=== PATIENT | female | born 1955 | race Caucasian/White ===

== ENCOUNTER → 2018-02-18 | Outpatient (CLI) | payer OTHER ==
[~2018-02-18] MED LIST: ACTIVELLA1 TAB; AMITRIPTYLINE H50 M2; EFFEXOR; GAVISCON TABLE1 EACH PO; LOPRESSOR 50 MG50 M1; MIRALAX255 GM; NEXIUM40 MG; NORCO 5-325 TA1 EACH PO; PANTOPRAZOLE SO40 MG; PROTONIX40 MG PO; RELPAX40 MG; ZANTAC 150MG T150 M1 PO
== END ==
LOC: M.RAD 13:11
DX: Z12.31 Encounter for screening mammogram for malignant neoplasm of breast (principal); M81.0 Age-related osteoporosis without current pathological fracture; M85.89 Other specified disorders of bone density and structure, multiple sites; Z78.0 Asymptomatic menopausal state

== ENCOUNTER 2018-09-04 18:18 | Emergency (ER) | payer OTHER ==
[~2018-09-04] VITALS: Ht 157.5 cm; Wt 40.8 kg
[~2018-09-04 18:18] MED LIST changes: -AMITRIPTYLINE H50 M2; +AMITRIPTYLINE H50 M2 PO; -LOPRESSOR 50 MG50 M1; +LOPRESSOR50 MG PO
[2018-09-04 19:53] LABS: CALCIUM 9.2 mg/dL (8.5-10.1); CREATININE 0.9 mg/dL (0.6-1.3); POTASSIUM 3.8 mmol/L (3.5-5.1)
[2018-09-04 21:24] VITALS: BP 110/58
== END 2018-09-04 21:25 | disposition home or self-care (01) ==
LOC: M.ERS 18:18
PROVIDERS: Physician Assistant
DX: G43.909 Migraine, unspecified, not intractable, without status migrainosus (principal); R11.2 Nausea with vomiting, unspecified; Z88.2 Allergy status to sulfonamides; Z88.1 Allergy status to other antibiotic agents; Z88.8 Allergy status to other drugs, medicaments and biological substances

== ENCOUNTER 2018-10-10 13:07 | Emergency (ER) | payer OTHER ==
[~2018-10-10] VITALS: Ht 157.5 cm; Wt 41.5 kg
[2018-10-10 13:34] LABS: ABSOLUTE EOSINOPHILS 0.1 thou/uL (0.0-0.7); ABSOLUTE LYMPHOCYTES 1.3 thou/uL (0.8-5.3); ABSOLUTE MONOCYTES 0.4 thou/uL (0.0-1.2); ABSOLUTE NEUTROPHILS 2.4 thou/uL (1.6-8.1); BASOPHILS 0.9 %; EOSINOPHILS 1.9 %; HEMATOCRIT 37.7 % (37.0-47.0); HEMOGLOBIN 12.6 gm/dL (12.0-15.0); LYMPHOCYTES 31.4 %; MCHC 33.3 g/dL (28.0-37.0); MCV 93.1 fL (80.0-100.0); MONOCYTES 8.6 %; NUCLEATED RBCS 0 /100WBC; PLATELET COUNT* 217 thou/uL (150-400); POLYS 57.2 %; RBC 4.05 mil/uL (4.20-5.00); RDW-CV 13.5 % (10.5-14.5); WBC 4.1 thou/uL (4.0-11.0)
[2018-10-10 13:47] LABS: ANION GAP 7 mmol/L (7-16); BUN 15 mg/dL (7-18); CALCIUM 9.2 mg/dL (8.5-10.1); CHLORIDE 101 mmol/L (98-107); CO2 33 mmol/L (21-32); CREATININE 0.9 mg/dL (0.6-1.3); GLUCOSE 127 mg/dL (70-99); POTASSIUM 3.8 mmol/L (3.5-5.1); SODIUM 141 mmol/L (136-145)
[2018-10-10 13:52] LABS: PROTIME 9.9 Seconds (9.20-11.50)
[2018-10-10 13:59] LABS: ALBUMIN 3.7 g/dL (3.4-5.0); ALKALINE PHOSPHATASE 77 U/L (46-116); NT-PRO BRAIN NAT PEPTIDE 242 pg/mL (<300); SGOT 25 U/L (15-37); SGPT 31 U/L (30-65); TOTAL BILIRUBIN 0.3 mg/dL (<0.1-1.0); TOTAL PROTEIN 7.4 g/dL (6.4-8.2); TROPONIN-I LEVEL <0.06 ng/mL (<0.06)
[2018-10-10 15:55] VITALS: BP 97/60
--- NOTE | 2018-10-10 16:05 | EKG ---
[place] [address] ELECTROCARDIOGRAM REPORT Name: MIRIAN GILBERT Room: [facility]#: [id number] Admission: 10/10/18 Attend Phys: Discharge: Date of : 51 Report #: [id number] THIS REPORT FOR: //name// [facility] ED Test Date: 2018-10-10 Test Time: 13:12:53 Pat Name: MIRIAN GILBERT Department: Room: Gender: F Die Tester: ANNA : 1955 Requested By: Prisca Tatum Order Number: [id number] MD: Cyril Fermin Measurements Intervals [place]igan Rate: 64 P: 81 CT: 200 QRS: 67 QRSD: 99 T: 63 QT: 420 QTc: 434 Interpretive Statements Sinus rhythm baseline wander Compared to ECG 04/10/2012 21:56:22 no change Electronically Signed On 10-10-2018 16:05:15 CDT by Cyril Fermin [email or web address] <ELECTRONICALLY SIGNED> By: Cyril Fermin MD, [facility] 10/10/18 1605 1312 1312 Cyril Fermin MD, FACC /EPI
== END 2018-10-10 19:09 | disposition home or self-care (01) ==
LOC: M.ERS 13:07
PROVIDERS: Personal Emergency Response Attendant
DX: R07.89 Other chest pain (principal); G43.909 Migraine, unspecified, not intractable, without status migrainosus; Z88.6 Allergy status to analgesic agent; Z88.5 Allergy status to narcotic agent; Z88.2 Allergy status to sulfonamides

== ENCOUNTER → 2018-11-25 | Outpatient (CLI) | payer MEDICARE, OTHER ==
--- NOTE | 2018-11-25 17:04 | EXE ---
[place] [address] STRESS ECHOCARDIOGRAM Name: MIRIAN GILBERT Room: [facility]#: [id number] Admission: 11/25/18 Attend Phys: Brent Gardner, Discharge: Date of : 51 Date of Service: 11/25/18 1704 Report #: [id number] THIS REPORT FOR: //name// APPROVED REPORT Study performed: 11/25/2018 15:35:13 Exam: Stress Echocardiogram Indication: Chest pain Patient Location: Out-Patient Stress Nurse: Palma Andre RN Supervising Physician: Brent Gardner MD Ht: 5 ft 2 in HR: 74 bpm BP: 123/80 mmHg Medical History Cardiac Risk Factors: FHX of CAD Procedure The patient underwent an Exercise Stress Test using the Maurilio Protocol. Blood pressure, heart rate, and EKG were monitored. An Echocardiogram was performed by security system technician in four stages in quad fashion. At peak stress, four selected images were obtained and placed side by side with resting images for comparison. Stress Test Details Stress Test: Exercise stress testing was performed using a Maurilio protocol. HR Resting HR: 74 bpm Max Heart Rate (APMHR): 155 bpm Max HR Achieved: 167 bpm Target HR (85% APMHR): 131 bpm % of APMHR: 107 Recovery HR: 91 bpm HR response to stress: Normal HR response to stress BP Resting BP: 123/80 mmHg Max BP: 189/72 mmHg Recovery BP: 130/80 mmHg BP response to stress: Normal blood pressure response to stress. ECG Resting ECG: Sinus Rhythm Stress ECG: [place] [address] STRESS ECHOCARDIOGRAM Name: MIRIAN GILBERT Room: [facility]#: [id number] Admission: 11/25/18 Attend Phys: Brent Gardner, Discharge: Date of : 51 Date of Service: 11/25/18 1704 Report #: [id number] ST Change: None Arrhythmia: None Recovery ECG: Sinus Rhythm Recovery ST Change: None Recovery Arrhythmia: None Clinical Reason for Termination: Completed protocol Exercise duration: 12 min sec Highest Stage Achieved: Stage 4: 4.2 mph at 16% grade. Exercise capacity: 13.48 METs The patient tolerated standard Maurilio protocol with no significant cardiac symptoms. Patient exhibited excellent exercise tolerance. Stress ECG Conclusion The baseline 12-lead EKG shows sinus rhythm with no significant ST or T wave abnormality. EKGs obtained during and post exercise showed sinus rhythm and sinus tachycardia with no significant ST or T wave changes when compared to baseline. There were no stress-induced arrhythmias. Pre-Stress Echo The resting Echocardiogram showed normal left ventricular contractility with an estimated Ejection Fraction of about 55-60%. Normal wall motion in all segments on baseline images. Post-Stress Echo The stress Echocardiogram showed normal left ventricular contractility with an estimated Ejection Fraction of about >70%. Normal augmentation of wall motion in all segments on post stress images. Clinical No clinical or ECG evidence for ischemia. Conclusion Clinical Response: Non-ischemic Exercise Capacity: Superior Stress ECG Response: Non-ischemic Stress Echo Images: [place] [address] STRESS ECHOCARDIOGRAM Name: MIRIAN GILBERT Room: [facility]#: [id number] Admission: 11/25/18 Attend Phys: Brent Gardner, Discharge: Date of : 51 Date of Service: 11/25/181703 Report #: [id number] Other Information Study Quality: Good <ELECTRONICALLY SIGNED> By: Brent Gardner MD, FACC 11/25/181703 03 03 Brent Gardner MD, FACC /INF
== END ==
LOC: M.CRD 14:44
DX: R07.2 Precordial pain (principal); Z88.2 Allergy status to sulfonamides; Z88.8 Allergy status to other drugs, medicaments and biological substances

== ENCOUNTER → 2019-05-13 | Outpatient (CLI) | payer MEDICARE, OTHER | LOC: M.RAD 10:00 | DX: Z12.31 Encounter for screening mammogram for malignant neoplasm of breast (principal) ==

== ENCOUNTER → 2020-05-31 | Outpatient (CLI) | payer MEDICARE, OTHER | LOC: M.RAD 13:45 | PROVIDERS: ATTEND Obstetrics & Gynecology | DX: Z12.31 Encounter for screening mammogram for malignant neoplasm of breast (principal) ==